=== PATIENT | female | born 1965 | race Caucasian/White ===

== ENCOUNTER → 2019-01-06 | Outpatient (CLI) | payer OTHER ==
[2019-01-06 11:10] VITALS: BP 106/72; PULSE 93; RESP 16; TEMP 98.3; BMI 18.4
--- NOTE | 2019-01-06 11:38 | P.GSHP ---
History of Present Illness H&P Date: 01/06/19 Chief Complaint: left breast mass The patient is a 53-year-old white female who complains of a lump in her left breast over the past month. She was seen by her nurse practitioner and sent here for evaluation. She underwent a bilateral mammogram on 7918 this revealed a 3.5 cm circumscribed lesion in the left breast as well as a second lesion in the middle depth out aspect. A bilateral left breast ultrasound was performed which confirmed that all of these areas were consistent with cystic lesions and felt to be non-worrisome for cancer. She has a history of breast cyst in the past. She has never had a cyst aspirated. She has no history of breast trauma. No history of any infection in her breast. She drinks two cups of coffee in am. She does not smoke and is not exposed to second hand smoke. She eats chocolate occasionally. She is not taking any hormones. She had a uterine ablation 2010 but still has spotting every 31 days. She has tender breast right before she spots. She does not notice any cyclical change in the breast mass. Family History: mother: bladder Hormonal History: menarche: 15 , 1 [place]age breast fed: yes, first orn at 31 menopause: ? still spotting BCP: 15 years hormones: none Surgical history: 1. Rectocele and cystocele 2. Uterine ablation 3. Tonsillectomy Medical History: 1. anxiety Social history: Smoke: Negative Alcohol: Weekend Drugs: Negative - Constitutional Constitutional: Denies chills, Denies fever - EENT Eyes: bilateral pain, denies blurred vision Ears: deny: decreased hearing, tinnitus Ears, nose, mouth and throat: Reports headache, Denies sore throat - Breasts Breasts: bilateral: as per HPI - Cardiovascular Cardiovascular: Denies chest pain, Denies shortness of breath - Respiratory Respiratory: Denies cough, Denies 7 - Gastrointestinal Comment: IBS Gastrointestinal: Denies abdominal pain, Denies diarrhea, Denies nausea, Denies vomiting - Genitourinary (Female) Genitourinary: Denies dysuria, Denies hematuria - Menstruation Menstruation: Reports period spotting - Musculoskeletal Comment: ? osteoarthritis of knees - Integumentary Comment: Psoriasis in the past - Neurological Neurological: Denies numbness, Denies weakness - Psychiatric Psychiatric: Reports anxiety - Endocrine Endocrine: Denies fatigue, Denies weight change - Hematologic/Lymphatic Comment: none - Allergic/Immunologic Allergic/Immunologic: Reports as per HPI Past Medical History History of Any Multi-Drug Resistant Organisms: None Reported Smoking Status: Never smoker Medications and Allergies Home Medications Medication Instructions Recorded Confirmed Type LORazepam [Ativan] 2 mg PO HS 01/06/19 01/06/19 History Allergies Allergy/AdvReac Type Severity Reaction Status Date / Time sulfamethoxazole AdvReac Diarrhea Unverified 01/06/19 11:11 [From Bactrim] trimethoprim [From Bactrim] AdvReac Diarrhea Unverified 01/06/19 11:11 Surgical - Exam Vital Signs Temp Pulse Resp BP Pulse Ox 98.3 F 93 16 106/72 100 01/06/19 11:05 01/06/19 11:05 01/06/19 11:05 01/06/19 11:05 01/06/19 11:05 BMI 18.5 - General well developed, well nourished, no distress - Eyes normal ocular movement - ENT no hearing loss, no congestion - Neck no masses, trachea midline - Respiratory normal respiratory effort, clear to auscultation - Cardiovascular Rhythm: regular Heart Sounds: normal: S1, S2 - Abdomen Abdomen: soft, non tender, no guarding, no rigid, no rebound - Integumentary normal turgor - Neurologic no disoriented, no combative - Musculoskeletal normal gait, normal posture - Psychiatric oriented to time, oriented to person, oriented to place, speech is normal, memory intact Breast examination: Right breast: Multi-positional exam fibrocystic changes no dominant masses or nodules of concern Right axilla: No adenopathy of concern left breast: Multiple positional exam increased area of nodularity upper inner quadrant this is a smooth cystic feeling lesion which corresponds to what was seen on mammogram and ultrasound Left axilla: No adenopathy of concern Results Mammogram and ultrasound results reviewed Assessment and Plan Assessment: Impression: 1. Left breast Mass. 2. Abnormal mammogram 3. Abnormal ultrasound 4. Family history of cancer 5. Fibrocystic breast changes 6. anxiety The risks and benefits of cyst aspiration were discussed with the patient and she wished to proceed Plan: 1. Cyst aspiration left breast 2. Follow-up in 2 weeks 3. Medical management of medical conditions CC: Ankita Power N.P.
--- NOTE | 2019-01-06 11:41 | P.PCN ---
Date of Procedure: 01/06/19 Preoperative Diagnosis: cyst left breast Postoperative Diagnosis: same Procedure(s) Performed: Aspiration cyst left breast Anesthesia: none Surgeon: Janel Milner Estimated Blood Loss (ml): 0 Pathology: other (cystic fluid) Condition: stable Disposition: same day Indications for Procedure: mass left breast Operative Findings: cystic fluid Description of Procedure: The area of concern in the left breast was prepped using alcohol. A 10 mL syringe with a 22-gauge needle was inserted into the palpable abnormality. Vacuum was applied to the syringe and 6 mL of turbid colored yellow fluid was obtained. There was complete resolution of the palpable abnormality. The fluid was sent for cytology. The patient tolerated the procedure in stable condition. The patient will follow up in 2 weeks Cc: Dr. Kathleen Zuleta
== END | disposition home or self-care (01) ==
LOC: WWCWWP 11:00
PROVIDERS: ATTEND Surgery
DX: N60.02 Solitary cyst of left breast (principal)
CPT/HCPCS: 87070; 87075; 87205

== ENCOUNTER → 2019-01-20 | Outpatient (CLI) | payer OTHER ==
[2019-01-20 08:37] VITALS: BP 107/71; PULSE 85; RESP 18; TEMP 98.3; BMI 18.4
--- NOTE | 2019-01-20 08:46 | P.PN ---
Subjective Progress Note Date: 01/20/19 The patient is status post aspiration of the cyst in the left breast. Patient's cultures on this were negative. The patient states that the area has some persistent nodularity however she is uncertain if the cyst has returned. She is still drinking 2 cups of coffee in the morning. She is not having any pain in her breast at this time. A bilateral mammogram in 01/06/2019 revealed a 3.5 cm circumscribed lesion in the left breast as well as a second lesion middle depth in the left breast. A bilateral ultrasound was performed which confirmed that all these were consistent with cystic lesions. These were felt to be non- worrisome. She does have a history of breast cyst in the past as well. Family History: mother: bladder cancer Surcigal History: 1. Rectocele and cystocele 2. Uterine ablation 3. Tonsillectomy Medical history: 1. Anxiety Social history: Smoke: Negative Alcohol: We can Drugs: Negative Review of systems: HEENT: Negative Cardiovascular: Negative Respiratory: Negative GI: Irritable bowel syndrome : Negative Musculoskeletal: Questionable osteoarthritis of the knees Breasts: As HPI Integument: Psoriasis in the past Psych: anxiety Objective - Vital Signs Vital signs: Vital Signs Temp 98.3 F 01/20/19 08:33 Pulse 85 01/20/19 08:33 Resp 18 01/20/19 08:33 BP 107/71 01/20/19 08:33 Pulse Ox 100 01/20/19 08:33 Intake & Output 01/19/19 01/20/19 01/20/19 18:59 06:59 18:59 Weight 50.349 kg - Constitutional General appearance: Present: average body habitus - EENT Eyes: Present: EOMI ENT: Present: hearing grossly normal - Neck Neck: Present: normal ROM - Respiratory Respiratory: bilateral: CTA - Cardiovascular Rhythm: regular Heart sounds: normal: S1, S2 - Integumentary Integumentary: Present: normal turgor - Musculoskeletal Musculoskeletal: Present: gait normal - Psychiatric Psychiatric: Present: A&O x's 3, appropriate affect, intact judgment & insight - Additional findings Additional findings: Breast examination: Left breast: Multi-positional exam persistent nodularity at the 12 o'clock position, uncertain as to whether this represents a new cystic lesion or is recurrence of the cyst that was aspirated Left axilla: No adenopathy of concern Right breast: fibrocystic changes Right axilla: No adenopathy of concern Assessment and Plan Assessment: Impression: 1. Prior aspiration of left breast cyst 2. Fibrocystic breast changes 3. Increased nodularity 12 o'clock position of the left breast 4. Family history of bladder cancer in her mother Plan: 1. Attempted aspiration of the 12:00 area of nodularity if this is a cystic lesion and results will follow conservatively if this remains persistent make consider another ultrasound of this area CC: Ankita Pacheco N.P.
--- NOTE | 2019-01-20 09:12 | P.PCN ---
Date of Procedure: 01/20/19 Preoperative Diagnosis: Cystic nodularity left breast Postoperative Diagnosis: Same Surgeon: Janel Milner Condition: stable Disposition: same day Indications for Procedure: Persistent cystic nodularity in the left breast Operative Findings: Yellow cystic fluid from all 4 sites Description of Procedure: The patient is a 53-year-old white female who approximately 2 weeks ago underwent aspiration of the cystic lesion in the left breast. Following aspiration of the lesion the patient was uncertain as to whether the lesion had returned there was a new spot in the 12 o'clock position of the breast. This appears to be in a spot different from the original cyst was aspirated. She therefore was given the option of an attempted repeat aspiration versus an ultrasound to confirm that this was indeed a cystic lesion. She wished for aspiration to be performed. The 12:00 area of the left breast was prepped using alcohol. A 22-gauge needle and a 10 mL syringe was inserted into the palpable abnormality. Proximally 5 mL of yellow fluid was obtained. After aspiration of this site a second cystic area was able to be identified at approximately the 2 o'clock position. This prepped using alcohol. A 22-gauge needle on a 10 mL syringe was inserted into the lesion and approximately 2 mL of fluid was obtained. The fluid was yellow in color. After this had been aspirated a second area at 2:00 was revealed which was also aspirated. The skin was prepped again using alcohol and a 22- gauge needle on a 10 mL syringe was inserted into the area that was palpable. An additional 2 mL of fluid was obtained. Upon examination of the breast a fourth area at the 1 o'clock position was identified and this skin was prepped as well with alcohol. A 22-gauge needle and a 5 mL syringe was inserted into the palpable abnormality and approximately 2 mL of yellow fluid was obtained with resolution of the lesion as well. No further large cystic lesions were identified by palpation. The fluid is sent for cytology. The patient tolerated the procedure in stable condition. She will follow up in approximately 4 weeks time for examination. She has again been encouraged to stop her caffeine intake. Cc: Dr. Wang
== END ==
LOC: WWCWWP 08:22
PROVIDERS: ATTEND Surgery
DX: N64.9 Disorder of breast, unspecified (principal)
CPT/HCPCS: 88108

== ENCOUNTER → 2019-02-16 | Outpatient (CLI) | payer OTHER ==
[2019-02-16 10:07] VITALS: BP 119/77; PULSE 78; RESP 16; TEMP 97.9; BMI 18.6
--- NOTE | 2019-02-16 10:13 | P.PN ---
Subjective Progress Note Date: 02/16/19 Principal diagnosis: Fibrocystic breast changes The patient is a 53-year-old white female status post aspiration of multiple cystic areas in the left breast on . The patient has no complaints after the aspiration. All aspirates were benign. The patient is uncertain as to whether she may have some recurrent cyst. Family history: Mother: Bladder cancer Surgical history: 1. Rectocele and cystocele 2. Uterine ablation 3. Tonsillectomy Medical history: Anxiety Social history: Smoke: Negative Alcohol: social drugs: none Objective - Vital Signs Vital signs: Intake & Output 02/15/19 02/16/19 02/16/19 18:59 06:59 18:59 Weight 50.802 kg - Exam BMI 18.6 - Constitutional General appearance: Present: average body habitus - EENT Eyes: Present: EOMI ENT: Present: hearing grossly normal - Neck Neck: Present: normal ROM - Respiratory Respiratory: bilateral: CTA - Cardiovascular Rhythm: regular Heart sounds: normal: S1, S2 - Gastrointestinal General gastrointestinal: Present: soft - Integumentary Integumentary: Present: normal turgor - Musculoskeletal Musculoskeletal: Present: gait normal - Psychiatric Psychiatric: Present: A&O x's 3, appropriate affect, intact judgment & insight - Additional findings Additional findings: Breast exam: Right breast: Multiple positional exam fibrocystic changes no discrete dominant masses or nodules of concern Right axilla: No adenopathy of concern {: Fibrocystic changes, no discrete recurrent cyst Left axilla: No adenopathy of concern Assessment and Plan Assessment: Impression: 1. Fibrocystic breast changes 2. Resolved cyst following aspiration 3. Prior history of rectocele and cystocele repair 4. Anxiety 5. Mother history of bladder cancer Plan: 1. Patient will continue to decrease caffeine intake 2. Repeat left breast ultrasound in 3 months with follow-up at that time 3. Medical management of medical conditions CC: Rayo Power
== END | disposition home or self-care (01) ==
LOC: WWCWWP 09:15
PROVIDERS: ATTEND Surgery
DX: Z53.9 Procedure and treatment not carried out, unspecified reason (principal)

== ENCOUNTER → 2019-05-04 | Outpatient (CLI) | payer OTHER ==
[2019-05-04 10:50] VITALS: BP 106/68; PULSE 83; RESP 16; TEMP 97.9; BMI 19.1
--- NOTE | 2019-05-04 11:19 | P.PN ---
Subjective Progress Note Date: 05/04/19 Principal diagnosis: surveillence for recurrent cyst in breast, pain in bilateral breast The patient is a 53-year-old white female status post aspiration of multiple cystic areas in the left breast on 8218. The patient had no complaints after the aspiration. All aspirates were benign. The patient is uncertain as to whether she may have some recurrent cyst. The patient today had an ultrasound performed of the left breast and a partial on the right breast. This showed only cysts and these were smaller than on prior studies. The patient states that her last menstrual period started April, and at that time she had breast tenderness. Normally the discomfort in her breast stops after her periods started. However, at this time she has recurrent bilateral breast tenderness. She states they feel very full and ache. The pain does not radiate anyplace. The patient drinks one to one and half cups of coffee per day. This is not changed recently. She has no difference in any medication. She has not taken any hormones. She has no abnormal discharge or changes. 10-17-18 FSH 3.4 estradiol: 121 progenterone 9.9 testerone: 25 total Family history: Mother: Bladder cancer History: Menarche: 15 , 1 miscarriage breast fed: Yes firstborn child at 31 Menopause questions still having periods control pills: 15 years Hormones: None Surgical history: 1. Rectocele and cystocele 2. Uterine ablation 3. Tonsillectomy Medical history: Anxiety Social history: Smoke: Negative Alcohol: social drugs: none Objective - Vital Signs Vital signs: Vital Signs Temp 97.9 F 05/04/19 10:44 Pulse 83 05/04/19 10:44 Resp 16 05/04/19 10:44 BP 106/68 05/04/19 10:44 Pulse Ox 98 05/04/19 10:44 Intake & Output 05/03/19 05/04/19 05/04/19 18:59 06:59 18:59 Weight 52.163 kg - Exam BMI 19.1 - Constitutional General appearance: Present: average body habitus, thin - EENT Eyes: Present: EOMI ENT: Present: hearing grossly normal - Neck Neck: Present: normal ROM - Respiratory Respiratory: bilateral: CTA - Cardiovascular Rhythm: regular Heart sounds: normal: S1, S2 - Integumentary Integumentary: Present: normal turgor - Musculoskeletal Musculoskeletal: Present: gait normal - Psychiatric Psychiatric: Present: A&O x's 3, appropriate affect, intact judgment & insight - Additional findings Additional findings: breast exam: right breast: multi-ositional exam. Dense breast, fibrocystic, full Right axilla: Shoddy adenopathy Left breast: Multiple positional exam dense breast fibrocystic changes Left axilla: No adenopathy of concern Assessment and Plan Assessment: Impression: 1. Fibrocystic breast changes 2. Increased fullness right breast at 9:00 3. Mastodynia bilateral 4. Menstrual cycles variable most likely perimenopausal 5. Family history of cancer 6. hormone levels reviewed Plan: 1. attept at aspiration of right breast cyst 2. abstain from caffeine 3. hormone levels r/o menopause to be repeated in September CC: Bessie Guy 30 minutes >50% planning and counselling
--- NOTE | 2019-05-04 11:24 | P.PCN ---
Date of Procedure: 05/04/19 Preoperative Diagnosis: Denseness right breast upper outer quadrant/possible cyst versus very dense breast tissue Postoperative Diagnosis: Dense breast tissue Procedure(s) Performed: Fine-needle aspiration right breast upper outer quadrant at 9:00 Surgeon: Janel Milner Pathology: other (breast cytology) Condition: stable Disposition: same day Indications for Procedure: Dense breast tissue suspect may be cyst versus dense breast tissue Operative Findings: dense breast tissue Description of Procedure: The area of concern in the right breast was prepped using alcohol. A 22 gauge needle on a 10 mL syringe was inserted into the area which was suspected of being a cyst. The tissue appeared to be very dense and firm and minimal cystic fluid was obtained. The needle was passed several times into the area and cells were obtained. The cells were sent for cytology. The patient tolerated the procedure in stable condition. The patient will call next week for results. If this is not atypical she will follow up in September for repeat breast examination. If this is atypical would consider open biopsy.
== END | disposition home or self-care (01) ==
LOC: WWCWWP 09:38
PROVIDERS: ATTEND Surgery
DX: N64.9 Disorder of breast, unspecified (principal)
CPT/HCPCS: 88173

== ENCOUNTER → 2019-05-04 | Outpatient (CLI) | payer OTHER ==
--- NOTE | 2019-05-04 11:49 | USB ---
Reason for exam: clinical finding. Indicated problem(s): palpable abnormality and lump or thickening in both breasts. Physical Findings: Nurse Summary: 2cm nodule right breast, 1.5cm nodule left breast (nurse dw). US Breast Limited BILAT Left complete breast ultrasound includes all four quadrants, the retroareolar region and axilla. Finding demonstrates a 1.9 x 0.9 x 1.8cm oval, cystic lesion at 2 o'clock and a 1.1 x 0.7 x 1.1cm oval, cystic lesion at 11 o'clock. Right limited breast ultrasound including focal area of concern, retroareolar and axilla demonstrates a 1.1 x 0.7 x 1.0cm oval, cystic lesion at 10 o'clock and a 1.0 x 0.6cm oval, cystic lesion at 10 o'clock. These results were verbally communicated with the patient and result sheet given to the patient on 05/04/19. ASSESSMENT: Benign, BI-RAD 2 RECOMMENDATION: Routine screening mammogram of both breasts in 1 year.
== END ==
LOC: RADUSWWP 09:36
PROVIDERS: ATTEND Surgery
DX: N60.02 Solitary cyst of left breast (principal); N60.01 Solitary cyst of right breast

== ENCOUNTER → 2019-10-26 | Outpatient (CLI) | payer BC ==
[2019-10-26 11:40] VITALS: BP 115/75; PULSE 80; RESP 18; TEMP 98.3
--- NOTE | 2019-10-26 12:41 | P.PN ---
Subjective Progress Note Date: 10/26/19 Principal diagnosis: breast cysts The patient is a 53-year-old white female who was seeen iniatially on 01-06-19. She had been seen by her nurse practitioner and sent here for evaluation regarding breast cyst. She underwent a bilateral mammogram on 7918 this revealed a 3.5 cm c ircumscribed lesion in the left breast as well as a second lesion in the middle depth outter aspect. A bilateral left breast ultrasound was performed which confirmed that all of these areas were consistent with cystic lesions and felt to be non-worrisome for cancer. She has a history of breast cyst in the past. She had 4 left breast cysts aspirated on 01-20-19, all were benign. She had a bilateral breast ultrasound preformed on 05-04-19. Two cyst were noted in each breast and they were felt to be benign birads2. An aspiration was done of the right breast and non-atypical cells were noted suggestive of a benign lesion. The patient was not seen following this procedure. She did have appointment to be seen but this was canceled secondary to the pino virus. This is the first time seen her since that aspiration. The patient at this time is complaining of two right breast masses. The patient is not complaining of any breast pain at this time. There were previously somewhat engorged and that is improved. However with the decrease in size of her breasts she has noted these 2 lumps in the right breast. She is not complaining of any changes in the left breast. She has no history of breast trauma. No history of any infection in her breast. She drinks 1 1/2 cups of coffee in am. She does not smoke and is not exposed to second hand smoke. She eats chocolate occasionally. She is not taking any hormones. She had a uterine ablation 2010 her last spotting was June 30. She has tender breast right before she spots. She does not notice any cyclical change in the breast mass. Family History: mother: bladder Hormonal History: menarche: 15 , 1 miscarriage breast fed: yes, first orn at 31 menopause: ? still spotting BCP: 15 years hormones: none Surgical history: 1. Rectocele and cystocele 2. Uterine ablation 3. Tonsillectomy Medical History: 1. anxiety Social history: Smoke: Negative Alcohol: Weekend Drugs: Negative - Constitutional Constitutional: Denies chills, Denies fever - EENT Eyes: bilateral pain, denies blurred vision Ears: deny: decreased hearing, tinnitus Ears, nose, mouth and throat: Reports headache, Denies sore throat - Breasts Breasts: bilateral: as per HPI - Cardiovascular Cardiovascular: Denies chest pain, Denies shortness of breath - Respiratory Respiratory: Denies cough - Gastrointestinal Comment: IBS Gastrointestinal: Denies abdominal pain, Denies diarrhea, Denies nausea, Denies vomiting - Genitourinary (Female) Genitourinary: Denies dysuria, Denies hematuria - Menstruation Menstruation: Reports period spotting - Musculoskeletal Comment: ? osteoarthritis of knees - Integumentary Comment: Psoriasis in the past - Neurological Neurological: Denies numbness, Denies weakness - Psychiatric Psychiatric: Reports anxiety - Endocrine Endocrine: Denies fatigue, Denies weight change - Hematologic/Lymphatic Comment: none - Allergic/Immunologic Allergic/Immunologic: Reports as per HPI Past Medical History History of Any Multi-Drug Resistant Organisms: None Reported Smoking Status: Never smoker Medications and Allergies Home Medications Medication Instructions Recorded Confirmed Type LORazepam [Ativan] 2 mg PO HS 01/06/19 01/06/19 History Allergies Allergy/AdvReac Type Severity Reaction Status Date / Time sulfamethoxazole AdvReac Diarrhea Unverified 01/06/19 11:11 [From Bactrim] trimethoprim [From Bactrim] AdvReac Diarrhea Unverified 01/06/19 11:11 Objective - Vital Signs Vital signs: Vital Signs Temp 98.3 F 10/26/19 11:37 Pulse 80 10/26/19 11:37 Resp 18 10/26/19 11:37 BP 115/75 10/26/19 11:37 Pulse Ox 100 10/26/19 11:37 Intake & Output 10/25/19 10/26/19 10/26/19 18:59 06:59 18:59 Weight 50.802 kg - Exam BMI 18.6 - Constitutional General appearance: Present: average body habitus - EENT Eyes: Present: EOMI ENT: Present: hearing grossly normal - Neck Neck: Present: normal ROM - Respiratory Respiratory: bilateral: CTA - Cardiovascular Rhythm: regular Heart sounds: normal: S1, S2 - Gastrointestinal General gastrointestinal: Present: normal bowel sounds, soft - Integumentary Integumentary: Present: normal turgor - Musculoskeletal Musculoskeletal: Present: gait normal - Psychiatric Psychiatric: Present: A&O x's 3, appropriate affect, intact judgment & insight - Additional findings Additional findings: Breast: BRA 34B inspection: no nipple changes of concern Palpation: right breast: Multi-positional exam reveals 3 areas of increased nodularity at 6:00 periareolar at 9:00 and upper outer quadrant at 11:00 Right axilla: No adenopathy of concern Left breast: Multi-positional exam fibrocystic changes no discrete dominant masses or nodules of concern Left axilla: No adenopathy of concern Assessment and Plan Assessment: Impression: 1. Symptomatic right breast cyst/nodules 2. Fibrocystic breast changes 3. Perimenopausal Plan: 1. Attempted aspiration of right breast cystic lesions 2. Right breast ultrasound 3. Follow-up in 1 week after ultrasound and pathology back Cyst aspiration attempted of 3 areas in the right breast. The areas were prepped using alcohol. A 22-gauge needle on a 10 mL syringe was utilized for the aspiration. The first was at the 6 o'clock position. Some turbid fluid was obtained without complete resolution of the cystic area. This is sent for cytology. The second area was in the upper outer quadrant at 11:00 no the cells were sent for cytology. This was again a 22-gauge needle on a 10 mL syringe. The third area was in the 9:00 region in the periareolar portion of the right breast a 22-gauge needle on a 10 mL syringe was inserted into an area of palpable abnormality. Bloody fluid was obtained approximately 6 mm. This was sent for cytology. There was not complete resolution of any of the areas which were aspirated. At the termination of the aspiration the area to 6:00 appeared to be persistent however secondary to the fact that we did not have clear fluid obtained from any of the areas it was felt that we will get an ultrasound and these were not retail sales representative of simple cysts. The patient understood the risks and benefits of the procedure and wished to proceed with the procedure. Risks included but were not limited to bleeding, infection, hematoma. CC: Bessie Porter.PAkin encounter 30 minutes, greater than 50% of time in planning and counselling Time with Patient: Greater than 30
== END | disposition home or self-care (01) ==
LOC: WWCWWP 11:16
PROVIDERS: ATTEND Surgery
DX: N64.9 Disorder of breast, unspecified (principal)
CPT/HCPCS: 88173

== ENCOUNTER → 2019-11-10 | Outpatient (CLI) | payer BC ==
--- NOTE | 2019-11-16 08:38 | MM ---
Reason for exam: clinical finding. History: Cyst aspiration of both breasts. Indicated problem(s): lump or thickening in both breasts. Physical Findings: Nurse Summary: 2cm nodule in the right breast at 10-11 o'clock and a 2cm nodule in the left breast at 12 o'clock and 2 o'clock (nurse mj). MG Diagnostic Mammo w CAD ERNESTO Bilateral CC and MLO view(s) were taken. Prior study comparison: May 04, 2019, bilateral US breast limited BILAT. There are multiple benign appearing round oval circumscribed masses likely cysts. Ultrasound is performed the same day. These results were verbally communicated with the patient and result sheet given to the patient on 11/10/19. ASSESSMENT: Incomplete: need additional imaging evaluation, BI-RAD 0 RECOMMENDATION: Ultrasound of both breasts.
--- NOTE | 2019-11-16 08:42 | USB ---
Reason for exam: additional evaluation requested from abnormal screening. History: Cyst aspiration of both breasts. US Breast BILAT Right complete breast ultrasound includes all four quadrants, the retroareolar region and axilla. Finding demonstrates a 4 x 3 x 4mm cystic cluster at 4 o'clock, a 6 x 4 x 10mm cystic lesion at 4 o'clock, a 8 x 4 x 8mm mixed, hypoechoic, vascular lesion at 7 o'clock and a 19 x 7 x 12mm cystic lesion at 11 o'clock BB. Left complete breast ultrasound includes all four quadrants, the retroareolar region and axilla. Finding demonstrates a 12 x 7 x 15mm cystic lesion at 12 o'clock BB, a 20 x 15 x 17mm cystic lesion at 2 o'clock BB and a 11 x 4 x 8mm cystic cluster at 11 o'clock. Multiple cystic areas bilaterally. These results were verbally communicated with the patient and result sheet given to the patient on 11/10/19. ASSESSMENT: Suspicious, BI-RAD 4 RECOMMENDATION: Aspiration of the right breast. 7 o'clock, attempt aspiration, if unsuccessful convert to biopsy. Called office with mammographic findings and has scheduled an appointment for the patient with Dr. Milner. Biopsy scheduled for 11/20/19 at 8:00. PRELIMINARY REPORT CALLED AND FAXED TO DR. MILNER ON 11/16/19.
== END | disposition home or self-care (01) ==
LOC: RADMAMWWP 13:38
PROVIDERS: ATTEND Surgery
DX: N63.10 Unspecified lump in the right breast, unspecified quadrant (principal); N63.20 Unspecified lump in the left breast, unspecified quadrant
CPT/HCPCS: 77066

== ENCOUNTER → 2019-11-17 | Outpatient (CLI) | payer BC | END | disposition home or self-care (01) | LOC: LABWHC1 14:55 | PROVIDERS: ATTEND Surgery | DX: Z11.59 Encounter for screening for other viral diseases (principal) ==

== ENCOUNTER → 2019-11-20 | Day surgery (SDC) | payer BC ==
[2019-11-20 07:26] VITALS: RESP 16; TEMP 98
[2019-11-20 09:27] VITALS: BP 121/73; PULSE 85
--- NOTE | 2019-11-20 10:04 | USB ---
EXAMINATION TYPE: US biopsy breast VAD RT, US biopsy breast add'l VAD RT Postbiopsy MG diagnostic mammo RT wo CAD DATE OF EXAM: 11/20/2019 CLINICAL HISTORY: 54-year-old female palpable area, failed aspiration at the office, R92.8 Abnormal ultrasound. TECHNIQUE: 2 site ultrasound guided core biopsy of the right breast. COMPARISON: 11/10/2019 FINDINGS: The procedure of ultrasound guided core biopsy was explained to the patient. Benefits, alternatives, and risks were discussed. An informed consent was then obtained. The patient was placed in supine positioning for imaging and for the procedure. The overlying skin was prepped and draped in usual sterile fashion. Lidocaine buffered with bicarbonate was used as anesthetic into the skin and subcutaneous tissue up to each area of concern in the right breast in turn. Site A, 7:00 solid-appearing: Under ultrasound guidance, a 13-gauge vacuum- assisted mammotome Elite biopsy gun device was used to obtain 4 core samples. Following this, a ribbon clip was left in lesion. Site B, 11:00 palpable complex cystic versus cyst cluster: Under ultrasound guidance, a 13-gauge vacuum-assisted mammotome Elite biopsy gun device was used to obtain 7 core samples. Following this, a coil clip was left in lesion. The patient tolerated the procedure well without any immediate complication. The patient was kept in the radiology department for short stay after the procedure and then discharged home in stable condition. Post procedure mammogram shows clips in appropriate position, coil clip at the patient's palpable site. There seems to be some associated hematoma at this site. IMPRESSION: Successful, two site ultrasound guided core biopsy of the right breast (7:00 solid-appearing and 11:00 palpable complex cystic versus cyst cluster). Full pathology results to follow. Some mild hematoma formation at the 11:00 biopsy site on the postprocedure mammogram noted. Pathology Results: Benign A. RIGHT BREAST, SITE A 7:00,ULTRASOUND GUIDED CORE BIOPSY: Nodular scar/fibrosis with inflammation and background fibrocystic changes including microcalcifications. Negative for malignancy. B. RIGHT BREAST, SITE B 11:00, ULTRASOUND GUIDED CORE BIOPSY: Inflamed apocrine cyst wall and background fibrocystic changes. Negative for malignancy. Recommendation Follow up ultrasound of the right breast in 6 months. MARY
== END ==
LOC: RADUSWWP 07:07
PROVIDERS: ATTEND Surgery
DX: N60.11 Diffuse cystic mastopathy of right breast (principal); N61.0 Mastitis without abscess
CPT/HCPCS: 88305; 77065; 19083; 19084; A4648; J2001

== ENCOUNTER → 2019-11-30 | Outpatient (CLI) | payer BC ==
[2019-11-30 16:41] VITALS: BP 122/80; PULSE 87; RESP 20; TEMP 97.9
--- NOTE | 2019-11-30 16:58 | P.PN ---
Subjective Progress Note Date: 11/30/19 Principal diagnosis: Status post core biopsy of 2 sites in the right breast and 6120 Rosmery is a 54-year-old white female who is status post ultrasound-guided biopsy of 2 sites in the right breast on 6120. The site at 7:00 was nodular scar/fibrosis with inflammation and Fibrocystic changes including microcalcifications. Negative for malignancy. The second site at 11:00 was inflamed apocrine cyst wall in Fibrocystic changes. This was negative for malignancy as well. The patient has had multiple cyst aspirated in both breasts in the past. On 10/26/2019 she had multiple areas of FNA performed in the right breast. The first was at 6:00 this reveal scanty clusters of epithelial cells with mild atypia favored to be reactive in a background of abundant acute inflammation Upper outer quadrant fine-needle aspiration scanty clusters of planned ductal epithelial cells and adipose tissue insufficient for definitive characterization to low cellularity Periareolar right breast 9:00 fine-needle aspirate minimally cellular specimen consisted of rare ductal epithelial cells with mild atypia favored to be reactive in background of blood insufficient for definitive characterization to low cellularity Her most recent bilateral mammogram was 520 220 which was pul led and ultrasound was recommended of both breasts. There were multiple benign- appearing round oval circumscribed mass is likely cyst noted. On the ultrasound multiple cystic areas were noted bilaterally. This was felt to be suspicious BIRADS 4 and aspiration of the right breast was recommended. This was performed as noted on 6120. After the most recent procedure she was noted to have some ecchymosis at the 7 and 11:00 site. Of note fullness continues to be persistent and does not appear to be consistent with simple cysts. Impression/Plan: 1. Multiple nodular areas biopsied in the right breast, 2 areas revealed some atypia however the atypia was felt to be reactive in nature. The patient with persistent discomfort at the sites of the nodularity 2. Patient's case to be presented at tumor Board reviewing the radiographic and pathologic findings together 3. We'll notify patient next week as to recommendation 4. patient perimenopausal 5. appointment next week CC: Ankita Guy encounter 15 minutes, > 50% of time spent in planning and counselling Objective - Vital Signs Vital signs: Vital Signs Temp 97.9 F 11/30/19 16:39 Pulse 87 11/30/19 16:39 Resp 20 11/30/19 16:39 BP 122/80 11/30/19 16:39 Pulse Ox 99 11/30/19 16:39 Intake & Output 11/29/19 11/30/19 11/30/19 18:59 06:59 18:59 Weight 50.349 kg
--- NOTE | 2019-12-12 13:34 | P.PN ---
Progress Note - Text Progress Note Date: 12/12/19 [place] [address]. It was felt that the area of atypia noted on the breast biopsies was secondary to inflammation and open biopsy was not recommended. It was felt that the patient may benefit from MRI of the breast versus contrast-enhanced mammography. If this was not to be done then she should be followed with breast ultrasound. I discussed this with the patient. She would prefer to be followed with ultrasound in 6 months. If she notices any changes she will contact us sooner. Again I have given her the option of attempting a breast MRI versus contrast-enhanced mammography and the patient would like to defer these studies at the present time.
== END | disposition home or self-care (01) ==
LOC: WWCWWP 16:35
PROVIDERS: ATTEND Surgery
DX: Z53.9 Procedure and treatment not carried out, unspecified reason (principal)

== ENCOUNTER → 2020-05-24 | Outpatient (CLI) | payer BC ==
--- NOTE | 2020-05-24 11:25 | USB ---
Reason for exam: follow-up at short interval from prior study. History: Benign US biopsy breast VAD RT of the right breast, November 20, 2019. Benign US biopsy breast add'l VAD RT of the right breast, November 20, 2019. Cyst aspiration of both breasts. Physical Findings: Nurse Summary: movable 0.5cm hard nodule right brast 7 o'clock, thickening bilaterally upper outer quadrants, small movable nodule left beast 8 o'clock (nurse TM). US Breast Limited BILAT Right limited breast ultrasound including focal area of concern, retroareolar and axilla demonstrates a 7 x 4 x 8mm lobular, cystic lesion at 9 o'clock and a 6 x 4 x 5mm lobular, irregular, hypoechoic lesion at 11 o'clock, previously biopsied, benign. Left limited breast ultrasound including focal area of concern, retroareolar and axilla demonstrates a 9 x 5 x 11mm lobular, cystic lesion at 8 o'clock and a 9 x 5 x 8mm lobular, cystic lesion at 9 o'clock. These results were verbally communicated with the patient and result sheet given to the patient on 05/24/20. ASSESSMENT: Benign, BI-RAD 2 RECOMMENDATION: Routine screening mammogram of both breasts in 5 months. Back on schedule for October 2020.
== END | disposition home or self-care (01) ==
LOC: RADUSWWP 07:01
PROVIDERS: ATTEND Surgery
DX: R92.8 Other abnormal and inconclusive findings on diagnostic imaging of breast (principal)

== ENCOUNTER → 2021-02-06 | Outpatient (CLI) | payer BC ==
--- NOTE | 2021-02-10 09:06 | MM ---
Reason for exam: screening (asymptomatic). Last mammogram was performed 1 year and 3 months ago. History: Benign US biopsy breast VAD RT of the right breast, November 20, 2019. Benign US biopsy breast add'l VAD RT of the right breast, November 20, 2019. Cyst aspiration of both breasts. Took hormonal contraceptives for 15 years. Physical Findings: A clinical breast exam by your physician is recommended on an annual basis and results should be correlated with mammographic findings. MG 3D Screening Mammo W/Cad Bilateral CC and MLO view(s) were taken. Prior study comparison: November 20, 2019, right breast MG diagnostic mammo RT wo CAD. November 10, 2019, bilateral MG diagnostic mammo w CAD ERNESTO. The breast tissue is heterogeneously dense. This may lower the sensitivity of mammography. Previous mammotome biopsy in the right breast x 2. Fluctuating nodularity on the left. Ultrasound recommended to ensure these all represent benign cysts. ASSESSMENT: Incomplete: need additional imaging evaluation, BI-RAD 0 RECOMMENDATION: Ultrasound of the left breast. [facility] will attempt to contact patient to return for ultrasound.
== END | disposition home or self-care (01) ==
LOC: RADMAMWWP 07:05
PROVIDERS: ATTEND Obstetrics & Gynecology
DX: Z12.31 Encounter for screening mammogram for malignant neoplasm of breast (principal)
CPT/HCPCS: 77063; 77067

== ENCOUNTER → 2021-02-28 | Outpatient (CLI) | payer BC ==
--- NOTE | 2021-02-28 12:23 | USB ---
Reason for exam: additional evaluation requested from abnormal screening. History: Benign US biopsy breast VAD RT of the right breast, November 20, 2019. Benign US biopsy breast add'l VAD RT of the right breast, November 20, 2019. Cyst aspiration of both breasts. Took hormonal contraceptives for 15 years. Physical Findings: Nurse Summary: left breast various palpable 10 o'clock, 2 o'clock, 0.5 x 1cm, tender, movable (nurse ts). US Breast Workup LT Left complete breast ultrasound includes all four quadrants, the retroareolar region and axilla. Finding demonstrates a 2.4 x 1.2 x 2.0cm oval, cystic lesion at 1 o'clock, a 0.7 x 0.3 x 0.6cm oval, cystic cluster at 10 o'clock and a 0.8 x 0.6 x 0.6cm oval, cystic lesion at 2 o'clock. These results were verbally communicated with the patient and result sheet given to the patient on 02/28/21. ASSESSMENT: Benign, BI-RAD 2 RECOMMENDATION: Return to routine screening mammogram schedule for both breasts. Manage patient on a clinical basis.
== END | disposition home or self-care (01) ==
LOC: RADUSWWP 07:33
PROVIDERS: ATTEND Obstetrics & Gynecology
DX: N60.02 Solitary cyst of left breast (principal)

== ENCOUNTER → 2022-09-17 | Outpatient (CLI) | payer BC ==
--- NOTE | 2022-09-18 07:47 | MM ---
Reason for Exam: Screening (asymptomatic). Last mammogram was performed 1 year(s) and 7 month(s) ago. Patient History: Menarche at age 15. First Full-Term at age 31. Postmenopausal. Patient used Hormonal Contraceptives for 15 years. Bilateral Cyst Aspiration. 11/20/2019, Benign Core Biopsy on the right side. 11/20/2019, Benign Core Biopsy on the right side. Risk Values: Therese 5 year model risk: 2.0%. NCI Lifetime model risk: 13.3%. Prior Study Comparison: 11/10/2019 Bilateral Diagnostic Mammogram, [facility]. 11/20/2019 Right Diagnostic Mammogram, [facility]. 02/06/2021 Bilateral Screening Mammogram, [facility]. Tissue Density: The breast tissue is heterogeneously dense. This may lower the sensitivity of mammography. Findings: Analyzed By CAD. There is no suspicious group of microcalcifications or new suspicious mass in either breast. Overall Assessment: Benign, BI-RAD 2 Management: Screening Mammogram of both breasts in 1 year. A clinical breast exam by your physician is recommended on an annual basis and results should be correlated with mammographic findings. Electronically signed and approved by: Conrad Handy M.D. Radiologis
== END | disposition home or self-care (01) ==
LOC: RADMAMWWP 07:06
PROVIDERS: ATTEND Obstetrics & Gynecology
DX: Z12.31 Encounter for screening mammogram for malignant neoplasm of breast (principal); Z78.0 Asymptomatic menopausal state; Z98.890 Other specified postprocedural states
CPT/HCPCS: 77063; 77067

== ENCOUNTER → 2023-10-26 | Outpatient (CLI) | payer BC ==
--- NOTE | 2023-10-27 18:12 | MM ---
Reason for Exam: Screening (asymptomatic). Last mammogram was performed 1 year(s) and 2 month(s) ago. Patient History: Menarche at age 15. First Full-Term at age 31. Postmenopausal. Patient used Hormonal Contraceptives for 15 years. Bilateral Cyst Aspiration. 11/20/2019, Benign Core Biopsy on the right side. 11/20/2019, Benign Core Biopsy on the right side. Risk Values: Therese 5 year model risk: 2.1%. NCI Lifetime model risk: 13.1%. Prior Study Comparison: 11/20/2019 Right Diagnostic Mammogram, [facility]. 02/06/2021 Bilateral Screening Mammogram, [facility]. 09/17/2022 Bilateral MG 3D screening mammo w/cad, [facility]. Tissue Density: The breasts are heterogeneously dense, which may obscure small masses. Findings: Analyzed By CAD. Unchanged bilateral asymmetric densities. 2 microclips within the right breast from prior biopsies. There is no suspicious group of microcalcifications or new suspicious mass in either breast. Overall Assessment: Benign, BI-RAD 2 Management: Screening Mammogram of both breasts in 1 year. Given the breast density, consideration can be given to supplementary screening with breast ultrasound. Patient should continue monthly self-breast exams. A clinical breast exam by your physician is recommended on an annual basis. This exam should not preclude additional follow-up of suspicious palpable abnormalities. Note on Therese scores and lifetime risk: 1. A Therese score greater than 3% is considered moderate risk. If this is the case, consider specialist referral to assess eligibility for a risk reducing agent. 2. If overall lifetime risk for the development of breast cancer is 20% or higher, the patient may qualify for future screening with alternating mammogram and breast MRI. Electronically signed and approved by: Malathi Abdi M.D. Radiologist
== END | disposition home or self-care (01) ==
LOC: RADMAMWWP 07:06
PROVIDERS: ATTEND Obstetrics & Gynecology
DX: Z12.31 Encounter for screening mammogram for malignant neoplasm of breast (principal); Z78.0 Asymptomatic menopausal state
CPT/HCPCS: 77063; 77067